=== PATIENT | male | born 1990 | race Caucasian/White ===

== ENCOUNTER 2019-06-16 20:35 | Emergency (ER) | payer BC ==
[~2019-06-16] VITALS: Ht 170.2 cm; Wt 75.7 kg
[2019-06-16 20:42] VITALS: Ht 170.2 cm; Wt 75.7 kg
[2019-06-16 22:01] LABS: BASOPHIL % 0.2 % (0-2); PLATELET COUNT 212 x10^3mcL (130-400); RED CELL DISTRIBUTION WIDTH 12.8 % (11.5-14.5)
[2019-06-16 22:08] LABS: CALCIUM 9.4 mg/dL (8.5-10.1); CARBON DIOXIDE 31.6 mmol/L (21-32); CHLORIDE SERUM 99 mmol/L (98-107); CREATININE SERUM 0.8 mg/dL (0.7-1.3); GFR1 > 60 mL/min; GLUCOSE SERUM 130 mg/dL (74-106); POTASSIUM SERUM 4.3 mmol/L (3.5-5.1); SODIUM SERUM 138 mmol/L (136-145)
[2019-06-16 22:12] LABS: ALBUMIN 4.4 g/dL (3.4-5.0); ALKALINE PHOSPHATASE 81 U/L (46-116); ALT/SGPT 41 U/L (16-63); BILIRUBIN TOTAL 0.4 mg/dL (0.20-1.00); TOTAL PROTEIN, SERUM 8.2 g/dL (6.4-8.2)
[2019-06-16 22:24] LABS: FREE T4 1.33 ng/dL (0.76-1.46); FREE THYROXINE INDEX 2.7 ug/dL (1.4-4.5); T4(THYROXINE) 6.8 ug/dL (4.7-13.3)
[2019-06-16 22:26] LABS: T3 TOTAL 1.06 ng/mL
[2019-06-16 22:45] LABS: AST/SGOT 23 U/L (15-37)
[2019-06-17 00:32] LABS: AMPHETAMINE QUAL UR NONE DETECTED (See below)
[2019-06-17 01:35] VITALS: BP 115/82
== END 2019-06-17 01:30 | disposition home or self-care (01) ==
LOC: ED 20:35
PROVIDERS: Emergency Medicine
DX: R07.89 Other chest pain (principal); R00.2 Palpitations
CPT/HCPCS: 36415; 84439; Q0092